=== PATIENT | male | born 1975 ===

== ENCOUNTER 2016-09-25 13:22 | Emergency (ER) | payer OTHER ==
[2016-09-25 13:35] VITALS: TEMP 98.6
--- NOTE | 2016-09-25 13:44 | C.PDOC ---
History Of Present Illness 41 y/o male no pmhx presents to the ED with complaints of injury to right forearm. 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 Bleeding controlled but is unable to remove the foreign body. Denies any other injury. Tetanus UTD 3 years ago. Time Seen by Provider: 09/25/16 13:41 Chief Complaint (Nursing): Upper Extremity Problem/Injury History Per: Patient History/Exam Limitations: no limitations Onset/Duration Of Symptoms: Mins Current Symptoms Are (Timing): Still Present Severity: Moderate Recent travel outside of the [place]: No Past Medical History Reviewed: Historical Data, Nursing Documentation, Vital Signs Vital Signs: Last Vital Signs Temp 98.6 F 09/25/16 13:32 Pulse 75 09/25/16 16:20 Resp 18 09/25/16 16:20 BP 132/75 09/25/16 16:20 Pulse Ox 99 09/25/16 16:30 Family History: States: Unknown Family Hx - Social History Hx Alcohol Use: Yes Hx Substance Use: No - Immunization History Hx Tetanus Toxoid Vaccination: No Hx Influenza Vaccination: No Hx Pneumococcal Vaccination: No Review Of Systems Skin: Positive for: Other (foreign body to right forearm) Neurological: Negative for: Weakness, Numbness Physical Exam - Physical Exam Appears: Non-toxic, No Acute Distress Skin: Warm, Dry, Other (right lateral forearm with 2 scratches plus, 1 larger scratch, palpable foreign body nonvisualized, no active bleeding) Head: Atraumatic, Normacephalic Extremity: Normal ROM, Capillary Refill (<2 seconds) Pulses: Right Radial: Normal Neurological/Psych: Oriented x3, Normal Speech, Normal Motor, Normal Sensation ED Course And Treatment O2 Sat by Pulse Oximetry: 99 (room air) Pulse Ox Interpretation: Normal Medical Decision Making Medical Decision Making: Foreign body to arm Plan: * Tylenol * Right forearm XR residential specialist Kaur irrigated wound, removed foreign body/wood piece with <5cm incision and covered with gauze. Patient's wound not actively bleeding. He tolerating procedure. I supervised the procedure. I instructed patient to make sure he takes the prophylatic antibiotics and to follow up with the clinic in 2-3 days for wound check. Disposition - Disposition Referrals: [facility] [Outside] Disposition: HOME/ ROUTINE Disposition Time: 16:20 Condition: IMPROVED Additional Instructions: Mr Crouch, thank you for letting us take care of you today. Your provider was Dr. Lopez. You were treated for Foreign Body. The emergency medical care you received today was directed at your acute symptoms. If you were prescribed any medication, please fill it and take as directed. It may take several days for your symptoms to resolve. Return to the Emergency Department if your symptoms worsen, do not improve, or if you have any other problems. Make sure to return to the ED if redness, puss or fever develops or any other concern. Please contact your doctor or call one of the physicians/clinics you have been referred to that are listed on the Patient Visit Information form that is included in your discharge packet. Bring any paperwork you were given at discharge with you along with any medications you are taking to your follow up visit. Our treatment cannot replace ongoing medical care by a primary care provider (PCP) outside of the emergency department. Thank you [facility] your care today. If you had an X-Ray or CT scan: A Radiologist will review the ED reading if any change in treatment is needed we will contact you. If you had a blood, urine, or wound culture: It will take several days for the results, if any change in treatment is needed we will contact you. If you had an STI test: It will take 48 hours for the results. Please call after 1 week if you have not heard back. Prescriptions: Cephalexin [cephalexin] 500 mg PO TID #20 cap Instructions: Soft Tissue Foreign Body (ED) Forms: Gen Discharge Inst Brazilian Print Language: LATVIAN - POA Present On Arrival: None - Clinical Impression Clinical Impression: Foreign body in forearm - Scribe Statement The provider has reviewed the documentation as recorded by the Sharmila Chaparro Provider Attestation: All medical record entries made by the Sharmila were at my direction and personally dictated by me. I have reviewed the chart and agree that the record accurately reflects my personal performance of the history, physical exam, medical decision making, and the department course for this patient. I have also personally directed, reviewed, and agree with the discharge instructions and disposition.
[2016-09-25] MEDS ORDERED: Lidocaine 1% Inj (20ml) INFIL ONE (13:48)
[2016-09-25] MEDS ORDERED: Lidocaine 1% Inj (20ml) ONE ×2 (14:09→14:53)
[2016-09-25 16:21] VITALS: BP 132/75; PULSE 75; RESP 18
--- NOTE | 2016-09-25 16:24 | PCM.PROC ---
Procedures Attestation:: I certify that I have explained the specified Operation(s) or Procedure(s), risks, benefits and reasonable alternatives to the Patient and/or other person responsible. The opportunity was given to ask questions and all questions answered - Foreign Body Removal Consent Obtained: written consent Time Out Performed: No Site: right, upper extremity Description of foreign body: other (wood) Sedation/Analgesia: other (lidocaine 1% 10cc) Technique: removal with forceps, incision made to facilitate removal, irrigation Confirmed by:: direct visualization, palpation Complications:: None Post-procedure exam: Awake, alert Neurovascular: Normal distal pulse, Normal capillary, Distal light touch sensation intact, Distal motor function normal, No signs of compartment syndrome , No change from pre-procedure
[2016-09-25 16:30] VITALS: O2SAT 99
--- NOTE | 2016-09-25 17:45 | RAD ---
PROCEDURE: Radiographs of the Right Forearm HISTORY: right arm hit by a piece of wood r/o fb COMPARISON: None available. TECHNIQUE: Frontal and lateral views obtained. FINDINGS: BONES: No definitive radiographic evidence of acute displaced fracture nor dislocation. . The no obvious cortical destructive changes JOINT SPACES: Unremarkable. OTHER FINDINGS: .No definitive radiopaque foreign bodies are seen. . There appears to be some mild dorsal soft tissue swelling at the level of the mid and proximal ulna. . Note that the wood splinter may not be readily apparent on plain film imaging and if there is any concern, followup CT scan may be performed. IMPRESSION: No acute fractures. There appears to be mild dorsal soft tissue swelling over the mid and proximal ulna. . No definitive radiopaque foreign bodies are seen however note that wood splinter may not be readily apparent on plain film imaging. Followup CT scan may be required if clinically indicated. Note that this report was placed in PA review folder for followup. .
== END 2016-09-25 16:21 | disposition home or self-care (01) ==
LOC: C.ER 13:22
DX: S50.851A Superficial foreign body of right forearm, initial encounter (principal); W22.8XXA Striking against or struck by other objects, initial encounter; Y93.H3 Activity, building and construction; Y92.89 Other specified places as the place of occurrence of the external cause; Y99.8 Other external cause status